=== PATIENT | female | born 1950 | race Hispanic/Latino ===

== ENCOUNTER 2022-05-30 09:44 | Outpatient (RCR) | payer MEDICARE | END 2022-06-05 | LOC: PT 09:44 | PROVIDERS: ATTEND Specialist | DX: S39.012A Strain of muscle, fascia and tendon of lower back, initial encounter (principal) ==

== ENCOUNTER 2022-07-04 09:54 | Outpatient (RCR) | payer MEDICARE | END 2022-07-05 | LOC: PT 09:54 | PROVIDERS: ATTEND Specialist | DX: S39.012A Strain of muscle, fascia and tendon of lower back, initial encounter (principal) ==

== ENCOUNTER 2022-07-08 07:01 | Outpatient (RCR) | payer MEDICARE | END 2022-08-05 | LOC: PT 07:01 | PROVIDERS: ATTEND Specialist | DX: S39.012A Strain of muscle, fascia and tendon of lower back, initial encounter (principal) ==

== ENCOUNTER 2023-08-12 10:09 | Emergency (ER) | payer MEDICARE, OTHER ==
[~2023-08-12] VITALS: Ht 152.4 cm; Wt 84.8 kg
[2023-08-12 10:20] VITALS: O2SAT 100
[2023-08-12 12:58] VITALS: BP 142/62; PULSE 74; RESP 18; TEMP 97.7
== END 2023-08-12 13:13 | disposition home or self-care (01) ==
LOC: ER 10:11
DX: M54.41 Lumbago with sciatica, right side (principal); R07.89 Other chest pain; M25.561 Pain in right knee; W18.39XA Other fall on same level, initial encounter; Y93.01 Activity, walking, marching and hiking; Y92.89 Other specified places as the place of occurrence of the external cause; E78.5 Hyperlipidemia, unspecified; K21.9 Gastro-esophageal reflux disease without esophagitis; Z95.810 Presence of automatic (implantable) cardiac defibrillator
CPT/HCPCS: 99283